=== PATIENT | female | born 1960 | race Caucasian/White ===

== ENCOUNTER 2023-10-30 11:20 | Emergency (ER) | payer OTHER ==
[2023-10-30] MEDS: Sodium Chloride 0.9% 500 ML IV SCH (11:51)
[2023-10-30 12:00] LABS: BASOPHILS ABSOLUTE AUTO 0.02 K/uL (0.00-0.20); BASOPHILS PERCENT AUTO 0.1 % (0.0-2.0); EOSINOPHILS ABSOLUTE AUTO 0.12 K/uL (0.00-0.50); EOSINOPHILS PERCENT AUTO 0.7 % (0.0-5.0); HEMATOCRIT 29.9 % (34.0-46.0); HEMOGLOBIN 9.1 g/dL (11.7-15.5); LYMPHOCYTES ABSOLUTE AUTO 1.09 K/uL (0.50-3.50); MEAN CORPUSCULAR HEMOGLOBIN 29.8 pg (28.2-33.3); MEAN CORPUSCULAR HGB CONC 30.4 g/dL (31.7-36.0); MONOCYTES ABSOLUTE AUTO 0.03 K/uL (0.00-1.00); MONOCYTES PERCENT AUTO 0.2 % (2.0-14.0); NEUTROPHILS ABSOLUTE AUTO 16.76 K/uL (1.40-7.00); PLATELET COUNT,PLT 253 K/uL (150-350); RED BLOOD CELL COUNT 3.05 M/uL (3.77-5.09); RED CELL DISTRIBUTION WIDTH 16.9 % (11.2-14.1)
[2023-10-30 12:20] LABS: ALBUMIN 2.4 g/dL (3.4-5.0); BILIRUBIN TOTAL 0.3 mg/dL (0.2-1.0); CALCIUM 10.7 mg/dL (8.5-10.1); CARBON DIOXIDE,CO2 17.4 mmol/L (21.0-32.0); CREATININE 1.74 mg/dL (0.51-1.17); EST CRCL DRUG DOSING (CG) 25.3 mL/min; POTASSIUM,K 4.7 mmol/L (3.5-5.1); PROTEIN TOTAL,TP 6.8 g/dL (6.4-8.2)
[2023-10-30 12:37] LABS: ANION GAP 22.3 meq/L (7-15)
[2023-10-30] MEDS ORDERED: Sodium Chloride 0.9% 10 ML Syringe FLUSH PRN (13:34)
[2023-10-30] MEDS: Sodium Chloride 0.9% 1,000 ML IV ONE (14:08)
[2023-10-30] MEDS: Apixaban 5 MG Tab PO ONE (14:28)
[2023-10-30] MEDS: Aluminum Hydroxide/Magnesium Hydroxide/Simethicone Susp 30 ML Cup PO ONE (15:02)
[2023-10-30] MEDS: Lidocaine 2% Viscous Solution 15 ML UD PO ONE (15:02)
[2023-10-30 15:31] LABS: APPEARANCE,URINE SLIGHTLY CLOUDY; BILIRUBIN,URINE NEGATIVE (NEGATIVE); COLOR,URINE YELLOW; GLUCOSE,URINE NEGATIVE (NEGATIVE); KETONES,URINE NEGATIVE (NEGATIVE); LEUKOCYTE ESTERASE,URINE TRACE (NEGATIVE); NITRITE,URINE NEGATIVE (NEGATIVE); OCCULT BLOOD,URINE SMALL (NEGATIVE); PROTEIN,URINE TRACE mg/dL (NEGATIVE); UROBILINOGEN,URINE 0.2 E.U./dL (0.2-1.0)
[2023-10-30 15:43] LABS: AMORPHOUS SEDIMENT,URINE FEW /HPF (0/HPF); BACTERIA,URINE FEW /HPF (NONE TO FEW); EPITHELIAL CELLS,URINE FEW /LPF; WBC,URINE 20-30 /HPF
[2023-10-30] MEDS: Cefepime 1 GM in Sodium Chloride 0.9% 100 ML IV ONE (15:45)
== END 2023-10-30 17:00 ==
LOC: LL.ED 11:20
DX: R60.0 Localized edema (principal); R03.1 Nonspecific low blood-pressure reading; R74.02 Elevation of levels of lactic acid dehydrogenase [LDH]; Z88.6 Allergy status to analgesic agent; Z88.0 Allergy status to penicillin; Z88.2 Allergy status to sulfonamides
CPT/HCPCS: 36415; 71045; 80053; 81001; 83605; 85025; 85379; 87040; 87086; 96360; 96361; 99284-25; A9270-GY; J7030; J7040

== ENCOUNTER 2024-07-16 15:46 | Emergency (ER) | payer OTHER ==
[2024-07-16] MEDS ORDERED: Sodium Chloride 0.9% 10 ML Syringe FLUSH PRN (15:49)
[2024-07-16 16:16] LABS: BASOPHILS ABSOLUTE AUTO 0.01 K/uL (0.00-0.20); IMMATURE GRAN ABSOLUTE AUTO 0.27 10^3/uL (0.00-0.50); IMMATURE GRAN PERCENT AUTO 0.9 % (0.0-5.0); LYMPHOCYTES ABSOLUTE AUTO 2.27 K/uL (0.50-3.50); LYMPHOCYTES PERCENT AUTO 7.4 % (10.0-50.0); MEAN CORPUSCULAR HEMOGLOBIN 28.1 pg (28.2-33.3); MEAN CORPUSCULAR HGB CONC 29.3 g/dL (31.7-36.0); MEAN CORPUSCULAR VOLUME 95.7 fL (84.0-98.0); MONOCYTES ABSOLUTE AUTO 1.81 K/uL (0.00-1.00); MONOCYTES PERCENT AUTO 5.9 % (2.0-14.0); NEUTROPHILS PERCENT AUTO 85.8 % (45.0-80.0); PLATELET COUNT,PLT 411 K/uL (150-350); RED BLOOD CELL COUNT 2.53 M/uL (3.77-5.09); RED CELL DISTRIBUTION WIDTH 20.5 % (11.2-14.1); WHITE BLOOD CELL COUNT,WBC 30.6 K/uL (4.0-10.2)
[2024-07-16 16:17] LABS: HEMOGLOBIN 7.1 g/dL (11.7-15.5)
[2024-07-16 16:18] LABS: HEMATOCRIT 24.2 % (34.0-46.0)
[2024-07-16 16:42] LABS: ALBUMIN 2.1 g/dL (3.4-5.0); BILIRUBIN TOTAL 0.4 mg/dL (0.2-1.0); CALCIUM 11.5 mg/dL (8.5-10.1); CARBON DIOXIDE,CO2 17.3 mmol/L (21.0-32.0); CREATININE 2.76 mg/dL (0.51-1.17); EST CRCL DRUG DOSING (CG) 15.74 mL/min; MAGNESIUM 2.8 mg/dL (1.8-2.4); POTASSIUM,K 5.1 mmol/L (3.5-5.1); PROTEIN TOTAL,TP 6.6 g/dL (6.4-8.2)
[2024-07-16 16:43] LABS: ANION GAP 23.8 meq/L (7-15)
[2024-07-16 17:06] LABS: APPEARANCE,URINE CLOUDY; BILIRUBIN,URINE MODERATE (NEGATIVE); COLOR,URINE YELLOW; GLUCOSE,URINE NEGATIVE (NEGATIVE); KETONES,URINE TRACE mg/dL (NEGATIVE); LEUKOCYTE ESTERASE,URINE SMALL (NEGATIVE); NITRITE,URINE NEGATIVE (NEGATIVE); OCCULT BLOOD,URINE LARGE (NEGATIVE); PH,URINE 5.5 (5.0-9.0); PROTEIN,URINE >=300 mg/dL (NEGATIVE); UROBILINOGEN,URINE 0.2 E.U./dL (0.2-1.0)
[2024-07-16 17:15] LABS: BACTERIA,URINE MANY /HPF (NONE TO FEW); EPITHELIAL CELLS,URINE FEW /LPF; WBC,URINE PACKED /HPF
[2024-07-16] MEDS: HYDROmorphone 2 MG Tab PO ONE (17:15)
[2024-07-16] MEDS: Sodium Chloride 0.9% 1,000 ML IV ONE (17:32)
[2024-07-16] MEDS: cefTRIAXone 1 GM Vial IVPUSH ONE (17:32)
== END 2024-07-16 18:45 ==
LOC: LL.ED 15:46
DX: N39.0 Urinary tract infection, site not specified (principal); D64.9 Anemia, unspecified; E86.0 Dehydration; M25.572 Pain in left ankle and joints of left foot; R79.89 Other specified abnormal findings of blood chemistry; Z79.899 Other long term (current) drug therapy; Z88.6 Allergy status to analgesic agent; Z88.0 Allergy status to penicillin; Z88.2 Allergy status to sulfonamides; Z88.8 Allergy status to other drugs, medicaments and biological substances; W18.30XA Fall on same level, unspecified, initial encounter
CPT/HCPCS: 36415; 72170; 80053; 81001; 82550; 83605; 83735; 85025; 87086; 96361; 96374; 99284; 99285-25; A9270-GY; J0696; J7030

== ENCOUNTER 2024-07-19 13:06 | Inpatient (IN) | payer OTHER ==
[2024-07-20] MEDS ORDERED: Sennosides/Docusate Sodium 50-8.6 MG Tab PO PRN (13:21)
[2024-07-20] MEDS: HYDROmorphone 2 MG Tab PO PRN ×2 (14:45→22:46)
[2024-07-20] MEDS: LORazepam 0.5 MG Tab PO PRN (20:00)
[2024-07-21] MEDS: Dexamethasone 4 MG Tab PO SCH (07:14)
[2024-07-21] MEDS: Sennosides/Docusate Sodium 50-8.6 MG Tab PO SCH (07:14)
[2024-07-21] MEDS: LEVOTHYROXINE 137 MCG PO SCH (07:15)
[2024-07-21] MEDS: FENTANYL 12 MCG/HR TRDERM SCH (18:21)
[2024-07-21] MEDS: HYDROMORPHONE 4 MG PO PRN (18:29)
[2024-07-22] MEDS ORDERED: fentaNYL 12 MCG/HR Transdermal Patch TRDERM SCH (08:00)
[2024-07-22] MEDS ORDERED: REMOVE FENTANYL TRDERM SCH (08:00)
[2024-07-22] MEDS: Bisacodyl 10 MG Supp ONE (12:19)
[2024-07-22] MEDS: Bisacodyl 10 MG Supp RECTAL SCH ×2 (13:58→14:03)
[2024-07-22] MEDS: HYDROMORPHONE 4 MG PO PRN (16:41)
[2024-07-22] MEDS: Haloperidol Lactate 2 MG/ML Oral Soln 15 ML Bottle PO PRN (18:48)
[2024-07-23] MEDS: Ondansetron 4 MG Tab.DIS PO PRN (14:36)
[2024-07-23] MEDS ORDERED: HYDROmorphone 2 MG Tab PO PRN (14:48)
[2024-07-23] MEDS: Haloperidol Lactate 2 MG/ML Oral Soln 15 ML Bottle PO PRN ×2 (15:43→16:45)
[2024-07-23] MEDS: Haloperidol Lactate 2 MG/ML Oral Soln 15 ML Bottle PO SCH ×2 (17:23→20:12)
[2024-07-23] MEDS: HYDROMORPHONE 4 MG PO PRN (19:09)
[2024-07-23] MEDS: HYDROMORPHONE 2 MG PO PRN (19:19)
[2024-07-24] MEDS: Hyoscyamine 0.125 MG Tab.SL SL PRN (07:04)
[2024-07-24] MEDS: Haloperidol Lactate 2 MG/ML Oral Soln 15 ML Bottle PO SCH (16:15)
[2024-07-24] MEDS: FENTANYL 12 MCG/HR TRDERM SCH (16:15)
[2024-07-26] MEDS ORDERED: REMOVE FENTANYL TRDERM SCH (12:00)
[2024-07-26] MEDS: FENTANYL TOP SCH (12:36)
[2024-07-26] MEDS: Ondansetron 4 MG Tab.DIS PO SCH (12:37)
[2024-07-26] MEDS: fentaNYL 25 MCG/HR Transdermal Patch TRDERM SCH (13:14)
[2024-07-27] MEDS: REMOVE FENTANYL TRDERM SCH (11:03)
[2024-07-27] MEDS: Haloperidol Lactate 2 MG/ML Oral Soln 15 ML Bottle PO PRN (13:50)
[2024-07-27] MEDS ORDERED: REMOVE FENTANYL TRDERM SCH (16:00)
[2024-07-28] MEDS: Hyoscyamine 0.125 MG Tab.SL SL PRN (09:28)
[2024-07-28] MEDS: Hyoscyamine 0.125 MG Tab.SL SL SCH (12:35)
[2024-07-28] MEDS: GLYCOPYRROLATE 1 MG SL PRN (13:30)
[2024-07-29] MEDS ORDERED: [UNRECOGNIZED DRUG - REMARK] TRDERM SCH (12:00)
== END 2024-07-28 21:50 | disposition expired | DRG 951 ==
LOC: LL.MS 07-20 11:20 → UNDOADMIN 07-20 12:30 → LL.MS 07-21 09:32 → UNDODISIN 07-22 17:30 → LL.MS 07-22 17:30 → UNDOADMIN 07-22 17:30
PROVIDERS: ADMIT Physician Assistant; ATTEND Physician Assistant
DX: Z51.5 Encounter for palliative care (principal); C56.9 Malignant neoplasm of unspecified ovary; C80.0 Disseminated malignant neoplasm, unspecified; Z66 Do not resuscitate; D63.1 Anemia in chronic kidney disease; N18.9 Chronic kidney disease, unspecified; Z88.0 Allergy status to penicillin; Z88.2 Allergy status to sulfonamides; Z88.8 Allergy status to other drugs, medicaments and biological substances; Z79.899 Other long term (current) drug therapy; Z79.4 Long term (current) use of insulin
CPT/HCPCS: 51702; A9270-GY; J8540